=== PATIENT | female | born 2005 | race African-American/Black ===

== ENCOUNTER 2024-04-21 13:43 | Emergency (ER) | payer BC ==
[2024-04-21] MEDS ORDERED: Metoclopramide HCl 10 MG (2 mL) VIAL ONE (14:42)
[2024-04-21] MEDS ORDERED: Ketorolac Tromethamine 30 MG (1 mL) VIAL ONE (14:42)
[2024-04-21] MEDS ORDERED: Dicyclomine 20 MG TAB ONE (16:03)
== END 2024-04-21 16:17 | disposition home or self-care (01) ==
LOC: ERS 13:43
DX: K52.9 Noninfective gastroenteritis and colitis, unspecified (principal); Z55.6 Problems related to health literacy
CPT/HCPCS: 76705; 96374; 96375; J1885; J2765